=== PATIENT | male | born 1985 | race Caucasian/White ===

== ENCOUNTER 2018-08-22 23:11 | Emergency (ER) | payer MEDICAID ==
[~2018-08-22] VITALS: Ht 170.2 cm; Wt 79.9 kg
[2018-08-22 23:36] VITALS: BP 109/63; Ht 170.2 cm; Wt 79.9 kg
== END 2018-08-23 02:20 | disposition home or self-care (01) ==
LOC: ED 23:11
DX: S61.210A Laceration without foreign body of right index finger without damage to nail, initial encounter (principal); W26.8XXA Contact with other sharp object(s), not elsewhere classified, initial encounter; Y93.89 Activity, other specified; Y92.89 Other specified places as the place of occurrence of the external cause; Y99.8 Other external cause status
CPT/HCPCS: J2001

== ENCOUNTER 2018-08-24 21:22 | Emergency (ER) | payer MEDICAID ==
[~2018-08-24] VITALS: Ht 170.2 cm; Wt 81.6 kg
[2018-08-24 21:59] VITALS: Ht 170.2 cm; Wt 81.6 kg
[2018-08-25 00:02] VITALS: BP 130/80
== END 2018-08-25 00:02 | disposition home or self-care (01) ==
LOC: ED 21:22
DX: S61.221D Laceration with foreign body of left index finger without damage to nail, subsequent encounter (principal); R03.0 Elevated blood-pressure reading, without diagnosis of hypertension; W04.XXXD Fall while being carried or supported by other persons, subsequent encounter